=== PATIENT | female | born 1975 | race Caucasian/White ===

== ENCOUNTER 2018-06-12 15:13 | Emergency (ER) | END 2018-06-12 17:54 | disposition home or self-care (01) ==

== ENCOUNTER 2018-11-13 10:39 | Emergency (ER) | payer MEDICAID ==
[~2018-11-13] VITALS: Wt 153.4 kg
[~2018-11-13 10:39] MED LIST: ACET-141 PO; ACET325T33 PO; CIPR500T4 PO; CYCL10TA7 PO; D-ME473S18 PO; NITR-58 PO; ONDA4TAB8 PO; PHEN-538 PO
--- NOTE | 2018-11-13 12:38 | ERD ---
ER Documentation Chief Complaint Chief Complaint BACK PAIN SINCE LAST NIGHT RAD RIGHT LEG HPI 43year-old female, presents to the emergency department, complaining of 1 day with back pain, associated with dysuria and hematuria. She has a history of kidney stones. She denies fevers, no chills, no nausea or vomiting. The patient has been taking Tylenol with mild improvement of the symptoms. ROS All systems reviewed and are negative except as per history of present illness. Medications Home Meds Active Scripts Tramadol HCl (Tramadol HCl) 50 Mg Tablet, 50 MG PO TID PRN for PAIN, #20 TAB Prov:ERIKA BLACKMAN MD 11/13/18 Ciprofloxacin Hcl* (Ciprofloxacin Hcl*) 250 Mg Tablet, 250 MG PO BID, #14 TAB Prov:ERIKA BLACKMAN MD 11/13/18 Ondansetron Hcl* (Zofran*) 4 Mg Tablet, 4 MG PO Q6H for NAUSEA AND/OR VOMITING, #30 TAB Prov:CAMELIA MUNGUIA 06/12/18 Ciprofloxacin Hcl* (Ciprofloxacin Hcl*) 500 Mg Tablet, 500 MG PO BID for 7 Days, TAB Prov:CAMELIA MUNGUIA 06/12/18 Dextromethorphan Hb-Promethazine Hcl (Promethazine DM Syrup) 473 Ml Syrup, 10 ML PO Q6 PRN for COUGH, #120 ML Prov:HAMILTON TAVARES MD 08/14/16 Acetaminophen* (Tylenol*) 325 Mg Tablet, 2 TAB PO Q6 PRN for PAIN AND OR ELEVATED TEMP, #20 TAB Prov:HAMILTON TAVARES MD 08/14/16 Phenazopyridine Hcl* (Pyridium*) 200 Mg Tab, 200 MG PO TID PRN for URINARY PAIN for 3 Days, #9 TAB 0 Refills Prov:DELISA GUZMAN PA-C 06/12/16 Nitrofurantoin Monohyd Macrocr (Macrobid) 100 Mg Capsr, 100 MG PO BID for 7 Days, #14 CAP 0 Refills Prov:DELISA GUZMAN PA-C 06/12/16 Phenazopyridine Hcl* (Pyridium*) 200 Mg Tab, 200 MG PO TID PRN for PAIN, #9 TAB 0 Refills Prov:DELISA GUZMAN PA-C 01/03/16 Ciprofloxacin Hcl* (Ciprofloxacin Hcl*) 500 Mg Tablet, 500 MG PO BID, #20 TAB 0 Refills Prov:DELISA GUZMAN PA-C 01/03/16 Cyclobenzaprine Hcl* (Cyclobenzaprine Hcl*) 10 Mg Tablet, 10 MG PO TID, #15 TAB Prov:RUSSELL BRIGGSAngeles 05/23/15 Reported Medications Acetaminophen* (Acetaminophen*) 500 MG Extra Strength Tablet, 1000 MG PO Q8 PRN for SEVERE PAIN LEVEL 7-10, TAB 08/18/14 Allergies Allergies: Coded Allergies: codeine (Verified Allergy, Mild, RASHES, 11/13/18) ibuprofen (Verified Allergy, Mild, RASHES, 11/13/18) PMhx/Soc History of Surgery: Yes (gallbladder) Anesthesia Reaction: No Hx Neurological Disorder: No Hx Respiratory Disorders: No Hx Cardiac Disorders: No Hx Psychiatric Problems: No Hx Miscellaneous Medical Probl: No Hx Alcohol Use: Yes (OCCASIONAL) Hx Substance Use: No Hx Tobacco Use: No Smoking Status: Former smoker Physical Exam Vitals Vital Signs Date Temp Pulse Resp B/P (MAP) Pulse Ox O2 O2 Flow FiO2 Time Delivery Rate 11/13/18 98.1 78 16 124/59 97 Room Air 14:43 (80) 11/13/18 98.4 84 18 152/84 99 10:42 (106) Physical Exam Const: No acute distress Head: Atraumatic Eyes: Normal Conjunctiva ENT: Normal External Ears, Nose and Mouth. Neck: Full range of motion. No meningismus. Resp: Clear to auscultation bilaterally Cardio: Regular rate and rhythm, no murmurs Abd: Soft, non tender, non distended. Normal bowel sounds Skin: No petechiae or rashes Back: No midline or flank tenderness Ext: No cyanosis, or edema Neur: Awake and alert Psych: Normal Mood and Affect Result Diagram: 11/13/18 1247 11/13/18 1247 Results 24 hrs Laboratory Tests Test 11/13/18 12:47 11/13/18 12:52 11/13/18 12:54 White Blood Count 11.3 10^3/ul Red Blood Count 4.23 10^6/ul Hemoglobin 11.9 g/dl Hematocrit 38.5 % Mean Corpuscular Volume 91.0 fl Mean Corpuscular Hemoglobin 28.1 pg Mean Corpuscular Hemoglobin Concent 30.9 g/dl Red Cell Distribution Width 13.4 % Platelet Count 330 10^3/UL Mean Platelet Volume 9.8 fl Immature Granulocytes % 0.500 % Neutrophils % 57.7 % Lymphocytes % 34.7 % Monocytes % 5.0 % Eosinophils % 1.8 % Basophils % 0.3 % Nucleated Red Blood Cells % 0.0 /100WBC Immature Granulocytes # 0.060 10^3/ul Neutrophils # 6.5 10^3/ul Lymphocytes # 3.9 10^3/ul Monocytes # 0.6 10^3/ul Eosinophils # 0.2 10^3/ul Basophils # 0.0 10^3/ul Nucleated Red Blood Cells # 0.0 10^3/ul Sodium Level 140 mmol/L Potassium Level 3.9 mmol/L Chloride Level 105 mmol/L Carbon Dioxide Level 26 mmol/L Anion Gap 9 Blood Urea Nitrogen 15 mg/dl Creatinine 0.64 mg/dl Est Glomerular Filtrat Rate mL/min > 60 mL/min Glucose Level 99 mg/dl Calcium Level 9.4 mg/dl Bedside Urine pH (LAB) 5.5 Bedside Urine Protein (LAB) 1+ Bedside Urine Glucose (UA) Negative Bedside Urine Ketones (LAB) Trace Bedside Urine Blood 3+ Bedside Urine Nitrite (LAB) Negative Bedside Urine Leukocyte Esterase (L 3+ POC Beta HCG, Qualitative NEGATIVE Current Medications Medications Dose Sig/Mayo Start Time Status Last (Trade) Ordered Route PRN Stop Time Admin Dose Reason Admin Sodium 1,000 ml @ Q1H ONCE 11/13/18 DC 11/13/18 Chloride 1,000 mls/hr IV 13:00 11/13/18 12:49 13:59 Tramadol 50 mg ONCE ONCE 11/13/18 DC 11/13/18 HCl PO 13:30 11/13/18 13:33 (Ultram) 13:31 Ceftriaxone 50 ml @ ONCE ONCE 11/13/18 DC 11/13/18 Sodium 100 mls/hr IVPB 14:00 11/13/18 13:54 14:29 Procedures/MDM Differential diagnosis include but not limited to: UTI, colitis, gastroenteritis, kidney stones, irritable bowel syndrome, inflammatory bowel syndrome, malabsorption syndrome, cholelithiasis, food intolerance, medication side effect, pancreatitis, diverticulitis, bowel obstruction. Low suspicion for acute abdomen Physical examination and clinical presentation consistent most likely with urinary tract infection. During the ED course the patient remained stable, no new complaints. The patient received treatment with Primaxin and tramadol presenting overall improvement of the symptoms. Results and clinical impression discussed with patient who agrees with management. The patient is stable to be treated outpatient and will be discharged home, some side effects of prescribed medications (headache, rash, nausea, vomiting, diarrhea, drowsiness, habituation, bleeding, hypertension, interactions with other medications) were reviewed. The patient was instructed to follow up with the primary care provider in the next 48h. If symptoms persist, worsen or new symptoms develop, then patient should return to the ED immediately. Instructions explained and given directly by me to the patient with ackn owledgment and demonstrated understanding. Disclaimer: Inadvertent spelling and grammatical errors are likely due to EHR/dictation software use and do not reflect on the overall quality of patient care. Also, please note that the electronic time recorded on this note does not necessarily reflect the actual time of the patient encounter. Departure Diagnosis: Primary Impression: Urinary tract infection Condition: Stable Additional Instructions: Muchas jhonny por [facility] para zee servicio. Esperamos que en zee visita a la jim de emergencia zee problema medico haya sido solucionado y que se sienta mucho mejor. Para estar seguros que zee mejoria sigue en proceso, le pedimos el favor de hacer teddy adam de seguimiento medico con zee doctor primario en los proximos 2-4 ordoñez. Lleve con usted estos documentos y las medicinas recetadas. Si frank sintomas empeoran, NO SE ESPERE, por favor regrese a jim de emergencia INMEDIATAMENTE. En pamela que usted no tenga un mdico de atencin primaria: Llame al mdico o clnica comunitaria de referencia que aparece abajo kiran las horas de consultorio para hacer teddy adam para que le vean. CLINICAS: [facility] [phone] [facility] 412 [phone] [facility] 435 [phone] [facility] [phone] [place] [id number] [phone] [facility]. [phone] ERIKA BAPTISTE MD Nov 13, 2018 12:38
[2018-11-13] MEDS ORDERED: SOD CHLORIDE 0.9% 1,000 ML IV ONE (13:00)
[2018-11-13] MEDS ORDERED: traMADol 50 MG TAB PO ONE (13:30)
[2018-11-13] MEDS ORDERED: CEFTRIAXONE 1 GM/50 ML (PMX) 50 ML IVPB ONE (14:00)
[2018-11-13] MEDS ORDERED: TRAM50TA2 PO (14:01)
[2018-11-13] MEDS ORDERED: CIPR-193 PO (14:01)
[2018-11-13 14:43] VITALS: BP 124/59; PULSE 78; RESP 16
== END 2018-11-13 14:44 | disposition home or self-care (01) ==
LOC: FTE 10:39
DX: N39.0 Urinary tract infection, site not specified (principal); R10.2 Pelvic and perineal pain; Z87.891 Personal history of nicotine dependence
CPT/HCPCS: 74176; 80048; 81003; 81025; 85025; 96361; 96365; J0696; J7030; Z7502; Z7610

== ENCOUNTER 2018-11-26 19:36 | Inpatient (IN) | payer MEDICAID ==
[~2018-11-26] VITALS: Ht 162.6 cm; Wt 161.4 kg
[~2018-11-26 19:36] MED LIST changes: +CIPR-193 PO; +TRAM50TA2 PO
[2018-11-26] MEDS ORDERED: morphine 4 MG/ML VIAL IV STA (20:32)
[2018-11-26] MEDS ORDERED: ONDANSETRON 4 MG INJ IV STA (20:32)
[2018-11-26] MEDS ORDERED: CEFTRIAXONE 1 GM/50 ML (PMX) 50 ML IVPB ONE (22:00)
[2018-11-26] MEDS ORDERED: ACETAMINOPHEN 325 MG TAB PO PRN (23:30)
[2018-11-26] MEDS ORDERED: ONDANSETRON 4 MG INJ IV PRN (23:30)
--- NOTE | 2018-11-26 23:56 | HP ---
Date/Time of Note Date/Time of Note DATE: 11/26/18 TIME: 23:56 Assessment/Plan VTE Prophylaxis Pharmacological prophylaxis: heparin Lines/Catheters IV Catheter Type (from Nrs): Saline Lock Assessment/Plan Assessment/Plan 1. UTI with likely left-sided pyelonephritis -IV antibiotic -Follow-up urine culture results -CT abdomen/pelvis 2 weeks ago showed Punctate 1 mm non-obstructing stones within the lower pole of both kidneys. No evidence of obstructive uropathy within both kidneys. No hydronephrosis. -Pain management 2. Morbid obesity with a BMI of 61: Weight reduction advised Result Diagram: 11/26/18204111/26/182041 Results 24hrs Laboratory Tests Test 11/26/18 20:42 11/26/18 20:47 White Blood Count 11.3 H Red Blood Count 3.95 L Hemoglobin 11.1 L Hematocrit 35.5 L Mean Corpuscular Volume 89.9 Mean Corpuscular Hemoglobin 28.1 L Mean Corpuscular Hemoglobin Concent 31.3 L Red Cell Distribution Width 13.4 Platelet Count 294 Mean Platelet Volume 9.6 Immature Granulocytes % 0.400 Neutrophils % 64.3 Lymphocytes % 28.0 Monocytes % 5.0 Eosinophils % 2.0 Basophils % 0.3 Nucleated Red Blood Cells % 0.0 Immature Granulocytes # 0.050 H Neutrophils # 7.3 Lymphocytes # 3.2 H Monocytes # 0.6 Eosinophils # 0.2 Basophils # 0.0 Nucleated Red Blood Cells # 0.0 Sodium Level 141 Potassium Level 4.2 Chloride Level 102 Carbon Dioxide Level 26 Anion Gap 13 Blood Urea Nitrogen 13 Creatinine 0.87 Est Glomerular Filtrat Rate mL/min > 60 Glucose Level 136 Calcium Level 9.0 Urine Color YELLOW Urine Clarity CLOUDY A Urine pH 5.0 Urine Specific [place] 1.017 Urine Ketones NEGATIVE Urine Nitrite NEGATIVE Urine Bilirubin NEGATIVE Urine Urobilinogen NEGATIVE Urine Leukocyte Esterase 3+ H Urine Microscopic RBC 53 H Urine Microscopic WBC > 182 H Urine Squamous Epithelial Cells MANY A Urine Transitional Epithelial Cells FEW A Urine Hemoglobin 3+ H Urine Glucose NEGATIVE Urine Total Protein NEGATIVE HPI/ROS Admit Date/Time Admit Date/Time Hx of Present Illness This is a 43-year-old morbidly obese female with no significant past medical history who presents the ER complaining of pain on urination and left flank pain. Patient was diagnosed here in our ER with UTI on 11/13/18 after she prese nted with lower back pain. She said she finished a course of Cipro, but her symptoms persisted. She also reported blood on the tissue when she wipes herself after urination. Denied fever/chills. When she presented to ER, she was afebrile. UA consistent with UTI. CT abdomen/pelvis 2 weeks ago showed Punctate 1 mm non-obstructing stones within the lower pole of both kidneys. No evidence of obstructive uropathy within both kidneys. No hydronephrosis. PMH/Family/Social Past Medical History Medical History: other Medications Current Medications Ondansetron HCl (Zofran Inj) 4 mg BRIDGE ORDER PRN IV NAUSEA AND/OR VOMITING; Start 11/26/18 at 23:30; Stop 11/27/18 at 23:29 Acetaminophen (Tylenol Tab) 650 mg ER BRIDGE PRN PO MILD PAIN(1-3)OR ELEVATED TEMP; Start 11/26/18 at 23:30; Stop 11/27/18 at 23:29 Coded Allergies: codeine (Verified Allergy, Mild, RASHES, 11/26/18) ibuprofen (Verified Allergy, Mild, RASHES, 11/26/18) Past Surgical History Past Surgical Hx: other Family History Significant Family History: no pertinent family hx Social History Alcohol Use: none Smoking Status: Never smoker Drug Use: none Exam/Review of Systems Vital Signs Vitals Vital Signs Date Temp Pulse Resp B/P (MAP) Pulse Ox O2 O2 Flow FiO2 Time Delivery Rate 11/26/18 98.5 104 20 130/61 99 19:40 (84) Exam Constitutional: other (In mild distress due to left-sided flank pain) Head: normocephalic, atraumatic Eyes: EOMI, PERRL Respiratory: clear to auscultation, normal air movement Cardiovascular: other (Tachycardic regular rhythm) Gastrointestinal: other (Left flank tenderness. Abdomen is morbidly obese, but soft) Extremities: normal pulses HUNG GRIFFIN MD Nov 26, 2018 23:56
[2018-11-27 00:33] VITALS: BP 135/62; PULSE 94; RESP 18; Ht 162.6 cm; Wt 161.4 kg
[2018-11-27] MEDS ORDERED: ONDANSETRON 4 MG INJ IV PRN (01:00)
[2018-11-27] MEDS ORDERED: NACL 0.9% 3 ML SYG IV SCH (01:00)
[2018-11-27] MEDS: SOD CHLORIDE 0.9% 1,000 ML IV SCH ×3 (01:49→18:32)
[2018-11-27 02:25] VITALS: BP 115/56; PULSE 96; RESP 16
[2018-11-27] MEDS: ACETAMINOPHEN 325 MG TAB PO PRN (05:25)
[2018-11-27] MEDS ORDERED: traMADol 50 MG TAB PO STA (05:45)
[2018-11-27] MEDS ORDERED: traMADol 50 MG TAB PO PRN (06:00)
[2018-11-27 07:50] VITALS: BP 111/53; PULSE 90; RESP 18
[2018-11-27] MEDS ORDERED: CEFTRIAXONE 1 GM/50 ML (PMX) 50 ML IVPB ONE (07:59)
[2018-11-27] MEDS ORDERED: CEFTRIAXONE 1 GM/50 ML (PMX) 50 ML IVPB SCH (09:00)
[2018-11-27 13:49] VITALS: BP 120/59; RESP 18
--- NOTE | 2018-11-27 16:37 | PN ---
Date/Time of Note Date/Time of Note DATE: 11/27/18 TIME: 16:33 Assessment/Plan VTE Prophylaxis Risk score (from [facility]0 risk: 2 SCD applied (from [facility]): Yes Pharmacological prophylaxis: LMWH Lines/Catheters IV C[facility]ter Type (from [facility] Peripheral IV Urinary Cath still in place: No Assessment/Plan Assessment/Plan 1. UTI with left-sided pyelonephritis, failure cipro, change rocephin to zosyn 2. Morbid obesity with a BMI of 61: Weight reduction advised 3. DVT prophylaxis: Lovenox Result Diagram: 11/27/1843411/27/18434 Results 24hrs Laboratory Tests Test 11/26/18 20:42 11/26/18 20:47 11/27/18 04:35 White Blood Count 11.3 H 10.2 Red Blood Count 3.95 L 3.87 L Hemoglobin 11.1 L 10.9 L Hematocrit 35.5 L 35.0 L Mean Corpuscular Volume 89.9 90.4 Mean Corpuscular Hemoglobin 28.1 L 28.2 L Mean Corpuscular Hemoglobin Concent 31.3 L 31.1 L Red Cell Distribution Width 13.4 13.6 Platelet Count 294 298 Mean Platelet Volume 9.6 9.8 Immature Granulocytes % 0.400 0.300 Neutrophils % 64.3 55.8 Lymphocytes % 28.0 36.5 Monocytes % 5.0 5.2 Eosinophils % 2.0 2.0 Basophils % 0.3 0.2 Nucleated Red Blood Cells % 0.0 0.0 Immature Granulocytes # 0.050 H 0.030 Neutrophils # 7.3 5.7 Lymphocytes # 3.2 H 3.7 H Monocytes # 0.6 0.5 Eosinophils # 0.2 0.2 Basophils # 0.0 0.0 Nucleated Red Blood Cells # 0.0 0.0 Sodium Level 141 139 Potassium Level 4.2 4.1 Chloride Level 102 106 Carbon Dioxide Level 26 25 Anion Gap 13 8 Blood Urea Nitrogen 13 13 Creatinine 0.87 0.67 Est Glomerular Filtrat Rate mL/min > 60 > 60 Glucose Level 136 104 Calcium Level 9.0 9.0 Urine Color YELLOW Urine Clarity CLOUDY A Urine pH 5.0 Urine Specific [place] 1.017 Urine Ketones NEGATIVE Urine Nitrite NEGATIVE Urine Bilirubin NEGATIVE Urine Urobilinogen NEGATIVE Urine Leukocyte Esterase 3+ H Urine Microscopic RBC 53 H Urine Microscopic WBC > 182 H Urine Squamous Epithelial Cells MANY A Urine Transitional Epithelial Cells FEW A Urine Hemoglobin 3+ H Urine Glucose NEGATIVE Urine Total Protein NEGATIVE Total Bilirubin 0.2 Direct Bilirubin 0.00 Indirect Bilirubin 0.2 Aspartate Amino Transf (AST/SGOT) 21 Alanine Aminotransferase (ALT/SGPT) 17 Alkaline Phosphatase 85 Total Protein 7.1 Albumin 3.6 Globulin 3.50 H Albumin/Globulin Ratio 1.02 Subjective 24 Hr Interval Summary Free Text/Dictation left flank pain Exam/Review of Systems Vital Signs Vitals Vital Signs Date Temp Pulse Resp B/P (MAP) Pulse Ox O2 O2 Flow FiO2 Time Delivery Rate 11/27/18 98.4 18 120/59 97 13:49 (79) 11/27/18 90 07:50 11/27/18 Room Air 02:25 Intake and Output 11/26/18 11/26/18 11/27/18 1414:59 22:59 06:59 IntakeIntake Total 665 ml BalanceBalance 665 ml Exam Constitutional: alert, oriented, well developed, obese Psych: no complaints, nl mood/affect Head: normocephalic, atraumatic Eyes: nl conjunctiva, EOMI, nl lids, nl sclera, PERRL ENMT: nl external ears & nose, nl lips & teeth, nl nasal mucosa & septum Neck: supple, non-tender Respiratory: clear to auscultation, normal air movement; No congested cough, No crackles/rales, No diminished breath sounds, No intercostal retraction, No labored breathing, No respirations, No tactile fremitus, No wheezing, No other Cardiovascular: regular rate and rhythm, nl pulses; No bruits, No diastolic murmur, No edema, No gallop, No irregular rhythm, No jugular venous distention (JVD), No murmurs/extra sounds, No rub, No systolic murmur, No S3, No S4, No other Gastrointestinal: soft, nl liver, spleen, non-tender Musculoskeletal: nl extremities to inspection Extremities: normal pulses; No calf tenderness, No cyanosis, No clubbing, No edema, No pitting pedal edema, No palpable cord, No tenderness, No other 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, nl mental status, nl speech, nl strength Skin: nl turgor Medications Medications Current Medications Ondansetron HCl (Zofran Inj) 4 mg BRIDGE ORDER PRN IV NAUSEA AND/OR VOMITING; Start 11/26/18 at 23:30; Stop 11/27/18 at 23:29 Acetaminophen (Tylenol Tab) 650 mg ER BRIDGE PRN PO MILD PAIN(1-3)OR ELEVATED TEMP; Start 11/26/18 at 23:30; Stop 11/27/18 at 23:29 Sodium Chloride 1,000 ml @ 100 mls/hr Q10H IV Last administered on 11/27/18at 16:17; Admin Dose 100 MLS/HR; Start 11/27/18 at 00:58; Stop 11/27/18 at 23:00 IV Flush (NS 3 ml) 3 ml PER PROTOCOL IV ; Start 11/27/18 at 01:00 Ondansetron HCl (Zofran Inj) 4 mg Q6H PRN IV NAUSEA AND/OR VOMITING; Start 11/27/18 at 01:00 Acetaminophen (Tylenol Tab) 650 mg Q6H PRN PO PAIN LEVEL 1-3 OR FEVER Last administered on 11/27/18at 05:25; Admin Dose 650 MG; Start 11/27/18 at 01:00 Ceftriaxone Sodium 50 ml @ 100 mls/hr Q12H IVPB Last administered on 11/27/18at 08:46; Admin Dose 100 MLS/HR; Start 11/27/18 at 09:00 Tramadol HCl (Ultram) 50 mg Q6H PRN PO MODERATE PAIN LEVEL 4-6 Last administered on 11/27/18at 16:17; Admin Dose 50 MG; Start 11/27/18 at 06:00 MARINA KNOWLES MD Nov 27, 2018 16:37
[2018-11-27] MEDS: PIPER-TAZO 3.375 GM IV (PMX) 100 ML IVPB SCH (18:31)
[2018-11-27] MEDS: ENOXAPARIN 40 MG/0.4 ML SYG SC SCH (18:53)
[2018-11-27 20:30] VITALS: BP 127/55; PULSE 83; RESP 19
[2018-11-28] MEDS: PIPER-TAZO 3.375 GM IV (PMX) 100 ML IVPB SCH ×3 (01:38→17:48)
[2018-11-28 02:27] VITALS: BP 122/56; PULSE 80; RESP 19
[2018-11-28 07:53] VITALS: BP 117/57; PULSE 89; RESP 18
[2018-11-28] MEDS: ENOXAPARIN 40 MG/0.4 ML SYG SC SCH (09:53)
--- NOTE | 2018-11-28 14:42 | PN ---
Date/Time of Note Date/Time of Note DATE: 11/28/18 TIME: 14:41 Assessment/Plan VTE Prophylaxis Risk score (from Ns)>0 risk: 2 SCD applied (from Ns): Yes Pharmacological prophylaxis: LMWH Lines/Catheters IV C[facility]ter Type (from [facility] Peripheral IV Urinary Cath still in place: No Assessment/Plan Assessment/Plan 1. UTI with left-sided pyelonephritis, failure cipro, improving on zosyn 2. Morbid obesity with a BMI of 61: Weight reduction advised 3. DVT prophylaxis: Lovenox Result Diagram: 11/28/1843811/28/18438 Results 24hrs Laboratory Tests Test 11/28/18 04:39 White Blood Count 9.5 Red Blood Count 3.93 L Hemoglobin 10.9 L Hematocrit 35.0 L Mean Corpuscular Volume 89.1 Mean Corpuscular Hemoglobin 27.7 L Mean Corpuscular Hemoglobin Concent 31.1 L Red Cell Distribution Width 13.8 Platelet Count 290 Mean Platelet Volume 9.7 Immature Granulocytes % 0.200 Neutrophils % 57.0 Lymphocytes % 34.8 Monocytes % 5.1 Eosinophils % 2.6 Basophils % 0.3 Nucleated Red Blood Cells % 0.0 Immature Granulocytes # 0.020 Neutrophils # 5.4 Lymphocytes # 3.3 H Monocytes # 0.5 Eosinophils # 0.3 Basophils # 0.0 Nucleated Red Blood Cells # 0.0 Sodium Level 138 Potassium Level 4.2 Chloride Level 105 Carbon Dioxide Level 24 Anion Gap 9 Blood Urea Nitrogen 13 Creatinine 0.66 Est Glomerular Filtrat Rate mL/min > 60 Glucose Level 101 Calcium Level 9.0 Subjective 24 Hr Interval Summary Free Text/Dictation minimal abdominal pain Exam/Review of Systems Vital Signs Vitals Vital Signs Date Temp Pulse Resp B/P (MAP) Pulse Ox O2 O2 Flow FiO2 Time Delivery Rate 11/28/18 98.2 89 18 117/57 99 07:53 (77) 11/27/18 Room Air 02:25 Intake and Output 11/27/18 11/27/18 11/28/18 1414:59 22:59 06:59 IntakeIntake Total 370 ml 3490 ml 1020 ml BalanceBalance 370 ml 3490 ml 1020 ml Exam Constitutional: alert, oriented, well developed, obese Psych: no complaints, nl mood/affect Head: normocephalic, atraumatic Eyes: nl conjunctiva, EOMI, nl lids ENMT: nl external ears & nose, nl lips & teeth, nl nasal mucosa & septum Neck: supple, non-tender Respiratory: clear to auscultation, normal air movement; No congested cough, No crackles/rales, No diminished breath sounds, No intercostal retraction, No labored breathing, No respirations, No tactile fremitus, No wheezing, No other Cardiovascular: regular rate and rhythm, nl pulses; No bruits, No diastolic murmur, No edema, No gallop, No irregular rhythm, No jugular venous distention (JVD), No murmurs/extra sounds, No rub, No systolic murmur, No S3, No S4, No other Gastrointestinal: soft, nl liver, spleen, non-tender Musculoskeletal: nl extremities to inspection Extremities: normal pulses; No calf tenderness, No cyanosis, No clubbing, No edema, No pitting pedal edema, No palpable cord, No tenderness, No other 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, nl mental status, nl speech, nl strength Skin: nl turgor Medications Medications Current Medications IV Flush (NS 3 ml) 3 ml PER PROTOCOL IV ; Start 11/27/18 at 01:00 Ondansetron HCl (Zofran Inj) 4 mg Q6H PRN IV NAUSEA AND/OR VOMITING; Start 11/27/18 at 01:00 Acetaminophen (Tylenol Tab) 650 mg Q6H PRN PO PAIN LEVEL 1-3 OR FEVER Last administered on 11/27/18at 05:25; Admin Dose 650 MG; Start 11/27/18 at 01:00 Tramadol HCl (Ultram) 50 mg Q6H PRN PO MODERATE PAIN LEVEL 4-6 Last administered on 11/27/18at 16:17; Admin Dose 50 MG; Start 11/27/18 at 06:00 Piperacillin Sod/ Tazobactam Sod 100 ml @ 25 mls/hr TID@,,18 IVPB Last administered on 11/28/18at 09:53; Admin Dose 25 MLS/HR; Start 11/27/18 at 18:00 Enoxaparin Sodium (Lovenox) 40 mg DAILY SC Last administered on 11/28/18at 09:53; Admin Dose 40 MG; Start 11/27/18 at 17:00 MARINA KNOWLES MD Nov 28, 2018 14:42
[2018-11-28 14:56] VITALS: BP 119/57; PULSE 79; RESP 18
[2018-11-28 19:35] VITALS: BP 127/66; PULSE 86; RESP 20
[2018-11-29] MEDS: PIPER-TAZO 3.375 GM IV (PMX) 100 ML IVPB SCH ×2 (01:11→10:06)
[2018-11-29 02:00] VITALS: BP 104/52; PULSE 90; RESP 20
[2018-11-29 07:24] VITALS: BP 104/51; PULSE 78; RESP 18
[2018-11-29] MEDS: ENOXAPARIN 40 MG/0.4 ML SYG SC SCH (08:41)
[2018-11-29] MEDS: ACETAMINOPHEN 325 MG TAB PO PRN (13:08)
--- NOTE | 2018-11-29 14:37 | DS ---
Date/Time of Note Date/Time of Note DATE: 11/29/18 TIME: 14:33 Discharge Summary Admission/Discharge Info Admit Date/Time Nov 26, 2018 at 23:28 Discharge Date/Time Discharge Diagnosis 1. UTI with left-sided pyelonephritis, improved, follow up with PCP 2. Morbid obesity with a BMI of 61: Weight reduction advised Patient Condition: Stable Hospital Course This is a 43-year-old morbidly obese female with no significant past medical history who presents the ER complaining of pain on urination and left flank pain. Patient was diagnosed here in our ER with UTI on 11/13/18 after she presented with lower back pain. She said she finished a course of Cipro, but her symptoms persisted. She also reported blood on the tissue when she wipes herself after urination. Denied fever/chills. When she presented to ER, she was afebrile. UA consistent with UTI. CT abdomen/pelvis 2 weeks ago showed Punctate 1 mm non-obstructing stones within the lower pole of both kidneys. No evidence of obstructive uropathy within both kidneys. No hydronephrosis. Patient is treated with zosyn since she failed cipro. Urine culture did not get a good sample. Patient's symptoms totally resolved with zosyn. I give her one dose of fosfomycin today and discharge her home without antibiotics. Home Meds Discontinued Reported Medications Acetaminophen* (Acetaminophen*) 500 MG Extra Strength Tablet, 1000 MG PO Q8 PRN for SEVERE PAIN LEVEL 7-10, TAB 08/18/14 Discontinued Scripts Tramadol HCl (Tramadol HCl) 50 Mg Tablet, 50 MG PO TID PRN for PAIN, #20 TAB Prov:ERIKA BLACKMAN MD 11/13/18 Ciprofloxacin Hcl* (Ciprofloxacin Hcl*) 250 Mg Tablet, 250 MG PO BID, #14 TAB Prov:ERIKA BLACKMAN MD 11/13/18 Ondansetron Hcl* (Zofran*) 4 Mg Tablet, 4 MG PO Q6H for NAUSEA AND/OR VOMITING, #30 TAB Prov:CAMELIA MUNGUIA 06/12/18 Ciprofloxacin Hcl* (Ciprofloxacin Hcl*) 500 Mg Tablet, 500 MG PO BID for 7 Days, TAB Prov:CAMELIA MUNGUIA 06/12/18 Dextromethorphan Hb-Promethazine Hcl (Promethazine DM Syrup) 473 Ml Syrup, 10 ML PO Q6 PRN for COUGH, #120 ML Prov:HAMILTON TAVARES MD 08/14/16 Acetaminophen* (Tylenol*) 325 Mg Tablet, 2 TAB PO Q6 PRN for PAIN AND OR ELEVATED TEMP, #20 TAB Prov:HAMILTON TAVARES MD 08/14/16 Phenazopyridine Hcl* (Pyridium*) 200 Mg Tab, 200 MG PO TID PRN for URINARY PAIN for 3 Days, #9 TAB 0 Refills Prov:DELISA GUZMAN PA-C 06/12/16 Nitrofurantoin Monohyd Macrocr (Macrobid) 100 Mg Capsr, 100 MG PO BID for 7 Days, #14 CAP 0 Refills Prov:DELISA GUZMAN PA-C 06/12/16 Phenazopyridine Hcl* (Pyridium*) 200 Mg Tab, 200 MG PO TID PRN for PAIN, #9 TAB 0 Refills Prov:DELISA GUZMAN PA-C 01/03/16 Ciprofloxacin Hcl* (Ciprofloxacin Hcl*) 500 Mg Tablet, 500 MG PO BID, #20 TAB 0 Refills Prov:DELISA GUZMAN PA-C 01/03/16 Cyclobenzaprine Hcl* (Cyclobenzaprine Hcl*) 10 Mg Tablet, 10 MG PO TID, #15 TAB Prov:RUSSELL BRIGGS 05/23/15 Follow-up Plan PCP in one week Primary Care Provider Care Physician No Primary Pending Labs Laboratory Tests Test 11/29/18 04:30 White Blood Count 10.5 10^3/ul (4.8-10.8) Red Blood Count 3.96 10^6/ul (4.20-5.40) Hemoglobin 11.1 g/dl (12.0-16.0) Hematocrit 35.4 % (37.0-47.0) Mean Corpuscular Volume 89.4 fl (82.0-101.0) Mean Corpuscular Hemoglobin 28.0 pg (29.0-33.0) Mean Corpuscular Hemoglobin Concent 31.4 g/dl (32.0-37.0) Red Cell Distribution Width 13.5 % (11.5-14.5) Platelet Count 283 10^3/UL (140-415) Mean Platelet Volume 9.8 fl (7.4-10.4) Immature Granulocytes % 0.400 % (0.001-0.429) Neutrophils % 61.0 % (39.0-77.0) Lymphocytes % 31.3 % (15.0-51.0) Monocytes % 4.8 % (0.0-11.0) Eosinophils % 2.1 % (0.0-7.0) Basophils % 0.4 % (0.0-2.0) Nucleated Red Blood Cells % 0.0 /100WBC (0.0-0.0) Immature Granulocytes # 0.040 10^3/ul (0.0-0.031) Neutrophils # 6.4 10^3/ul (1.6-7.5) Lymphocytes # 3.3 10^3/ul (0.8-2.9) Monocytes # 0.5 10^3/ul (0.3-0.9) Eosinophils # 0.2 10^3/ul (0.0-0.5) Basophils # 0.0 10^3/ul (0.0-0.1) Nucleated Red Blood Cells # 0.0 10^3/ul (0.0-0.0) Sodium Level 138 mmol/L (135-144) Potassium Level 4.2 mmol/L (3.5-5.1) Chloride Level 104 mmol/L (97-110) Carbon Dioxide Level 25 mmol/L (21-31) Anion Gap 9 (5-13) Blood Urea Nitrogen 12 mg/dl (7-20) Creatinine 0.65 mg/dl (0.44-1.00) Est Glomerular Filtrat Rate mL/min > 60 mL/min (>60) Glucose Level 102 mg/dl (70-220) Calcium Level 8.9 mg/dl (8.4-10.2) MARINA KNOWLES MD Nov 29, 2018 14:37
[2018-11-29] MEDS ORDERED: FOSFOMYCIN 3 GM PACKET PO ONE (15:30)
--- NOTE | 2018-12-18 11:18 | ERD ---
ER Documentation Chief Complaint Chief Complaint BILATERAL FLANK PAIN WITH RECENT VISIT D/T UTI, SYMPTOMS STILL PRESENT HPI ED EVALUATION 11/26/2017 44-year-old female history of nephrolithiasis, UTU, remote cholecystectomy and obesity presents to the ED complaining of several day history worsening, sharp and achy, left flank pain with dysuria and polyuria. Denies hematuria, abdominal pain, nausea or vomiting. No relieving or exacerbating factors. No fevers or chills. Denies chest pain, palpitations, shortness of breath, abdominal pain or skin rash. Patient reports she was treated in the ED on 10/30/2018 for urinary tract infection with ciprofloxacin but her symptoms never completely resolved. She returned to the ED November 13, 2017 for evaluation of back pain and a CT revealed bilateral, punctate, nonobstructing nephrolithiasis. ROS All systems reviewed and are negative except as per history of present illness. Medications Home Meds No Active Prescriptions or Reported Meds Allergies Allergies: Coded Allergies: codeine (Verified Allergy, Mild, RASHES, 11/26/18) ibuprofen (Verified Allergy, Mild, RASHES, 11/26/18) PMhx/Soc Reviewed in chart. As per HPI. History of Surgery: Yes (GALLBLADDER SX= 2005) Anesthesia Reaction: No Hx Neurological Disorder: No Hx Respiratory Disorders: No Hx Cardiac Disorders: No Hx Psychiatric Problems: No Hx Miscellaneous Medical Probl: Yes (Nephrolithiasis, urinary tract infection.) Hx Alcohol Use: Yes (OCCASSIONAL) Hx Substance Use: No Hx Tobacco Use: No Smoking Status: Never smoker FmHx No cancer or stroke Physical Exam Vitals Temperature: 98.4. Pulse: 104. Respirations: 20. Blood pressure 130/61. O2 saturation 99% on room air. Physical Exam Const: Moderate distress due to pain Head: Atraumatic Eyes: Normal Conjunctiva ENT: Normal External Ears, Nose and Mouth. Neck: Full range of motion. No meningismus. Resp: Clear to auscultation bilaterally Cardio: Regular rate and rhythm, no murmurs Abd: Soft, obese, non tender, non distended. No rebound or guarding. Normal bowel sounds Skin: No petechiae or rashes Back: Left CVA tenderness Ext: No cyanosis, or edema Neur: Awake and alert Psych: Normal Mood and Affect Results 24 hrs Laboratory Tests Test 11/26/18 20:42 11/26/18 20:47 White Blood Count 11.3 10^3/ul Red Blood Count 3.95 10^6/ul Hemoglobin 11.1 g/dl Hematocrit 35.5 % Mean Corpuscular Volume 89.9 fl Mean Corpuscular Hemoglobin 28.1 pg Mean Corpuscular Hemoglobin Concent 31.3 g/dl Red Cell Distribution Width 13.4 % Platelet Count 294 10^3/UL Mean Platelet Volume 9.6 fl Immature Granulocytes % 0.400 % Neutrophils % 64.3 % Lymphocytes % 28.0 % Monocytes % 5.0 % Eosinophils % 2.0 % Basophils % 0.3 % Nucleated Red Blood Cells % 0.0 /100WBC Immature Granulocytes # 0.050 10^3/ul Neutrophils # 7.3 10^3/ul Lymphocytes # 3.2 10^3/ul Monocytes # 0.6 10^3/ul Eosinophils # 0.2 10^3/ul Basophils # 0.0 10^3/ul Nucleated Red Blood Cells # 0.0 10^3/ul Sodium Level 141 mmol/L Potassium Level 4.2 mmol/L Chloride Level 102 mmol/L Carbon Dioxide Level 26 mmol/L Anion Gap 13 Blood Urea Nitrogen 13 mg/dl Creatinine 0.87 mg/dl Est Glomerular Filtrat Rate mL/min > 60 mL/min Glucose Level 136 mg/dl Calcium Level 9.0 mg/dl Urine Color YELLOW Urine Clarity CLOUDY Urine pH 5.0 Urine Specific Sayner 1.017 Urine Ketones NEGATIVE mg/dL Urine Nitrite NEGATIVE mg/dL Urine Bilirubin NEGATIVE mg/dL Urine Urobilinogen NEGATIVE mg/dL Urine Leukocyte Esterase 3+ Yanira/ul Urine Microscopic RBC 53 /HPF Urine Microscopic WBC > 182 /HPF Urine Squamous Epithelial Cells MANY /HPF Urine Transitional Epithelial Cells FEW /HPF Urine Hemoglobin 3+ mg/dL Urine Glucose NEGATIVE mg/dL Urine Total Protein NEGATIVE mg/dl Current Medications Medications Dose Sig/Mayo Start Time Status Last (Trade) Ordered Route PRN Stop Time Admin Dose Reason Admin Morphine 4 mg ONCE STAT 11/26/18 DC 11/26/18 Sulfate IV 20:32 20:51 (morphine) 11/26/18 20:34 Ondansetron 4 mg ONCE STAT 11/26/18 DC 11/26/18 HCl (Zofran IV 20:32 20:51 Inj) 11/26/18 20:34 Ceftriaxone 50 ml @ ONCE ONCE 11/26/18 DC 11/26/18 Sodium 100 mls/hr IVPB 22:00 22:21 11/26/18 22:29 Procedures/MDM DOCUMENTS REVIEWED: ED nurse, prior ED records LAB INTERPRETATION: CBC reveals a mild leukocytosis of 11.3 and borderline anemi a with H/H 11.1/35.5 but no thrombocytopenia. Chemistry unremarkable for electrolyte abnormalities, renal insufficiency or hyperglycemia. Urinalysis significant for greater than 182 WBCs per high-power field and 3+ leukocytes but negative esterase. Culture is pending. MEDICAL DECISION MAKIN-year-old female history of nephrolithiasis, UTU, remote cholecystectomy and obesity presents to the ED complaining atraumatic, left flank pain. Patient had a recent CAT scan that revealed nonobstructing p unctate nephrolithiasis but no evidence of diverticulosis/diverticulitis, abdominal aortic aneurysm, ovarian/uterine pathology or neoplasm and no further imaging is indicated today. Urinalysis consistent with urinary tract infection/pyelonephritis in this patient with documented nephrolithiasis who was recently completed a course of fluoroquinolones. Presentation consistent with pyelonephritis and antibiotics were initiated pending cultures. No criteria for systemic inflammatory response syndrome or sepsis. Patient will require admission for IV antibiotics, further evaluation and management. [place] [facility] [place] and [place]. PATIENT CARE TRANSITIONED: Time: 3, Dr. Henriquez. Counseled patient regarding diagnosis, diagnostic results and plan for admission. Departure Diagnosis: Primary Impression: Acute left flank pain Additional Impression: Acute pyelonephritis Condition: Serious Patient Instructions: Understanding Urinary Tract Infections (UTIs), Pyelonephritis, Pyelonephritis, Female (Adult) OTONIEL GUILLAUME MD Dec 18, 2018 11:11
[2018-12-18] MEDS ORDERED: CEPH-443 PO (15:52)
== END 2018-11-29 16:45 | disposition home or self-care (01) | DRG 690 ==
LOC: E/R 19:36 → MS1 23:28
PROVIDERS: ADMIT Internal Medicine; ATTEND Internal Medicine
DX: N10 Acute pyelonephritis (principal); Z68.44 Body mass index [BMI] 60.0-69.9, adult; E66.01 Morbid (severe) obesity due to excess calories; N39.0 Urinary tract infection, site not specified; B95.4 Other streptococcus as the cause of diseases classified elsewhere; Z71.3 Dietary counseling and surveillance
CPT/HCPCS: 36415; 80048; 80053; 81001; 85025; 87086; 96365; 96375; J0696; J1650; J2270; J2405; J2543; J7030

== ENCOUNTER 2019-04-25 16:50 | Emergency (ER) | payer MEDICAID ==
[~2019-04-25] VITALS: Ht 157.5 cm; Wt 167.0 kg
[~2019-04-25 16:50] MED LIST changes: -ACET-141 PO; -ACET325T33 PO; +CEPH-443 PO; -CIPR-193 PO; -CIPR500T4 PO; -CYCL10TA7 PO; -D-ME473S18 PO; -NITR-58 PO; -ONDA4TAB8 PO; -PHEN-538 PO; -TRAM50TA2 PO
[2019-04-25 17:07] VITALS: Ht 157.5 cm; Wt 167.0 kg
[2019-04-25] MEDS ORDERED: FLUC150T PO (18:15)
[2019-04-25] MEDS ORDERED: CEPH-443 PO (18:15)
--- NOTE | 2019-04-25 18:23 | ERD ---
ER Documentation Chief Complaint Chief Complaint painful urination x 4 days HPI 43-year-old female with no significant past medical history presenting to the emergency department complaining of painful urination for the past 4 days. She also reports vaginal itching and some mild white vaginal discharge. She denies any abdominal pain, nausea, vomiting, diarrhea, fevers, chills, or other symptoms at this time. Symptoms are currently moderate and intermittent. ROS All systems reviewed and are negative except as per history of present illness. Medications Home Meds Active Scripts Fluconazole* (Diflucan*) 150 Mg Tablet, 150 MG PO ONCE, #1 TAB Prov:HUNG GILLESPIE PA-C 04/25/19 Cephalexin* (Keflex*) 500 Mg Capsule, 500 MG PO QID for 7 Days, CAP Prov:HUNG GILLESPIE PA-C 04/25/19 Cephalexin* (Keflex*) 500 Mg Capsule, 500 MG PO QID for 10 Days, CAP Prov:SUZI WHITLEY PA-C 12/18/18 Allergies Allergies: Coded Allergies: codeine (Verified Allergy, Mild, RASHES, 11/26/18) ibuprofen (Verified Allergy, Mild, RASHES, 11/26/18) PMhx/Soc History of Surgery: Yes (GALLBLADDER SX= 2005) Anesthesia Reaction: No Hx Neurological Disorder: No Hx Respiratory Disorders: No Hx Cardiac Disorders: No Hx Psychiatric Problems: No Hx Miscellaneous Medical Probl: Yes (Nephrolithiasis, urinary tract infection.) Hx Alcohol Use: Yes (OCCASSIONAL) Hx Substance Use: No Hx Tobacco Use: No Smoking Status: Never smoker FmHx Family History: No diabetes Physical Exam Vitals Vital Signs Date Temp Pulse Resp B/P (MAP) Pulse Ox O2 O2 Flow FiO2 Time Delivery Rate 04/25/19 99.7 89 16 140/73 96 17:07 (95) Physical Exam Const: No acute distress Head: Atraumatic Eyes: Normal Conjunctiva ENT: Normal External Ears, Nose and Mouth. Neck: Full range of motion. No meningismus. Resp: Clear to auscultation bilaterally Cardio: Regular rate and rhythm, no murmurs Abd: Soft, non tender, non distended. Normal bowel sounds. No rebound tenderness or guarding. No McBurney's point tenderness. Skin: No petechiae or rashes Back: No midline or flank tenderness. No CVA tenderness. Ext: No cyanosis, or edema Neur: Awake and alert Psych: Normal Mood and Affect Results 24 hrs Laboratory Tests Test 04/25/19 17:59 04/25/19 18:00 POC Beta HCG, Qualitative NEGATIVE Bedside Urine pH (LAB) 5.5 Bedside Urine Protein (LAB) Trace Bedside Urine Glucose (UA) Negative Bedside Urine Ketones (LAB) Negative Bedside Urine Blood 2+ Bedside Urine Nitrite (LAB) Negative Bedside Urine Leukocyte Esterase (L 1+ Procedures/MDM 43-year-old female presents to the emergency department with signs and symptoms most consistent with urinary tract infection and vaginitis, likely fungal etiology. She will be treated as an outpatient with prescriptions for Keflex and Diflucan. Low suspicion for PID. Low suspicion for sepsis, acute surgical abdomen, ovarian torsion, ectopic , or other emergencies. Patient is stable and appropriate for discharge and further outpatient management with prescriptions. She was given strict return precautions and she demonstrated good understanding prior to discharge. Departure Diagnosis: Primary Impression: UTI (urinary tract infection) Additional Impression: Vaginitis Condition: Fair Patient Instructions: Understanding Urinary Tract Infections (UTIs), Vaginitis, Melissa Referrals: [facility] YOU HAVE RECEIVED A MEDICAL SCREENING EXAM AND THE RESULTS INDICATE THAT YOU DO NOT HAVE A CONDITION THAT REQUIRES URGENT TREATMENT IN THE EMERGENCY DEPARTMENT. FURTHER EVALUATION AND TREATMENT OF YOUR CONDITION CAN WAIT UNTIL YOU ARE SEEN IN YOUR DOCTORS OFFICE WITHIN THE NEXT 1-2 DAYS. IT IS YOUR RESPONSIBILITY TO MAKE AN APPOINTMENT FOR FOLOW-UP CARE. IF YOU HAVE A PRIMARY DOCTOR --you should call your primary doctor and schedule an appointment IF YOU DO NOT HAVE A PRIMARY DOCTOR YOU CAN CALL OUR PHYSICIAN REFERRAL HOTLINE AT IF YOU CAN NOT AFFORD TO SEE A PHYSICIAN YOU CAN CHOSE FROM THE FOLLOWING [facility] [id number] [facility] [address] [facility] [facility] [address] [facility] [address] [facility] [address] [facility]. [facility]. [address] Additional Instructions: Call your primary care doctor TOMORROW for an appointment during the next 1-2 days.See the doctor sooner or return here if your condition worsens before your appointment time. HUNG GILLESPIE PA-C Apr 25, 2019 18:23
[2019-04-25 18:37] VITALS: BP 130/68; PULSE 82; RESP 16
== END 2019-04-25 18:37 | disposition home or self-care (01) ==
LOC: FTE 16:50
DX: N76.0 Acute vaginitis (principal)
CPT/HCPCS: 81003; 81025; Z7502; 99283